=== PATIENT | male | born 1990 | race Two or more races ===

== ENCOUNTER 2024-04-12 06:10 | Day surgery (SDC) | payer OTHER ==
[2024-04-07 11:47] LABS: Urine Bacteria None Seen /hpf (None Seen)
[2024-04-07 12:00] LABS: Basophils # (auto) 0.1 10 ^3/uL (0-0.2); Basophils % (auto) 0.9 % (0.0-2.0); Eosinophils # (auto) 0.1 10 ^3/uL (0-0.8); Eosinophils % (auto) 1.8 % (0.0-7.0); Hematocrit 47.3 % (41.0-53.0); Hemoglobin 15.7 g/dL (13.5-17.5); Lymphocytes # (auto) 2.5 10 ^3/uL (0.4-5.4); Lymphocytes % (auto) 31.8 % (10.0-50.0); Mean Corpuscular Hemoglobin 30.7 pg (28.0-32.0); Mean Corpuscular Hgb Conc. 33.2 g/dL (32.0-36.0); Mean Corpuscular Volume 92.4 fL (80.0-100.0); Monocytes # (auto) 0.7 10 ^3/uL (0-1.3); Neutrophils # (auto) 4.4 10 ^3/uL (1.6-8.6); Neutrophils % (auto) 56.5 % (37.0-80.0); Nucleated Red Blood Cells % 0.1 %; Platelet Count (auto) 286 10^3/uL (140-450); Red Blood Cells 5.12 10^6/uL (4.5-5.90); Red Cell Distribution Width 13.4 % (11.8-14.3); White Blood Cell 7.7 10^3/uL (4.4-10.8)
[2024-04-07 12:17] LABS: Partial Thromboplastin Time 28.1 SEC (24.5-34.5); Prothrombin Time 10.6 sec (9.3-11.8)
[2024-04-07 12:18] LABS: Urine Blood Negative /uL (Negative); Urine Clarity Clear (Clear); Urine Color Yellow (Yellow); Urine Protein, UAD Negative (Negative); Urine Specific Gravity 1.028 (1.001-1.035); Urine Urobilinogen Normal (Negative); Urine WBC <1 /hpf (0 - 3)
[2024-04-07 12:36] LABS: Alanine Aminotransferase 43 U/L (7-40); Albumin 4.8 g/dL (3.2-4.8); Alkaline Phosphatase 72 U/L (46-116); Anion Gap 4 (5-15); Aspartate Aminotransferase 18 U/L (13-40); BUN/Creatinine Ratio 14.6 (10.0-20.0); Bilirubin, Total 0.5 mg/dL (0.2-1.0); Blood Urea Nitrogen 14 mg/dL (9-23); Calcium 10.2 mg/dL (8.7-10.4); Carbon Dioxide 30 mmol/L (20-31); Chloride 108 mmol/L (98-107); Glucose 119 mg/dL (74-106); Potassium 4.4 mmol/L (3.5-5.1); Sodium 142 mmol/L (136-145); Total Protein 7.5 g/dL (5.7-8.2)
[~2024-04-12] VITALS: Ht 165.1 cm; Wt 68.0 kg
[2024-04-12] MEDS ORDERED: ceFAZolin 2 GM/D5W100ml 100 ML IV ONE (06:33)
[2024-04-12] MEDS ORDERED: BUPIVACAINE HCL 50 ML ONE (07:26)
[2024-04-12] MEDS ORDERED: DexAMETHasone SOD PHOS 10MG/1ML VIAL INJ ONE (11:49)
[2024-04-12] MEDS ORDERED: KETAMINE 50mg/ML 1ml syringe ONE (11:49)
[2024-04-12] MEDS ORDERED: LIDOCAINE 2% (LOCAL ANESTH.) PF 5ml SDV ONE (11:49)
[2024-04-12] MEDS ORDERED: GLYCOPYRROLATE 0.2 MG/ML 1ML VIAL ONE (11:49)
[2024-04-12] MEDS ORDERED: KETOROLAC TROMETH 30 MG/ML 1ML VIAL ONE (11:49)
[2024-04-12] MEDS ORDERED: fentaNYL CITRATE 100 MCG/2 ML VL ONE (11:49)
[2024-04-12] MEDS ORDERED: PROPOFOL 10 MG/ML 20 ML IV ONE (11:49)
[2024-04-12] MEDS ORDERED: ONDANSETRON HCL 4 MG/2 ML VIAL ONE ×2 (11:49→14:09)
[2024-04-12] MEDS ORDERED: LIDOCAINE 1% INJ PF 5ML AMP ONE (11:53)
[2024-04-12] MEDS ORDERED: EPINEPHrine HCL 1 MG/1 ML AMP ONE (11:54)
[2024-04-12] MEDS ORDERED: DexAMETHasone SOD PHOS 4 MG/1ML SDV INJ ONE (12:15)
[2024-04-12] MEDS: GABAPENTIN 400 MG CAP PO ONE (12:24)
[2024-04-12] MEDS: CELECOXIB 100 MG CAP PO ONE (12:24)
[2024-04-12] MEDS: ACETAMINOPHEN IV 1000 MG/100ML (10MG/ML) IV ONE (12:24)
[2024-04-12 13:24] VITALS: RESP 17; TEMP 97.6; O2SAT 100
[2024-04-12] MEDS ORDERED: hydrALAZINE HCL 20 MG/ML VL IV PRN (13:30)
[2024-04-12] MEDS ORDERED: FLUMAZENIL 0.1 MG/ML INJ 10ML MDV IV PRN (13:30)
[2024-04-12] MEDS ORDERED: ePHEDrine SULFATE 50 MG/ML AMP IV PRN (13:30)
[2024-04-12] MEDS ORDERED: NALOXONE HCL 0.4 MG/ML VIAL IV PRN (13:30)
[2024-04-12] MEDS ORDERED: fentaNYL CITRATE 100 MCG/2 ML VL IV PRN (13:30)
[2024-04-12] MEDS ORDERED: HYDROmorphone HCL 2 MG/ML VL/or syr IV PRN (13:30)
--- NOTE | 2024-04-12 13:32 | DVHOP2 ---
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 These include but are not limited to complications of anesthesia, postoperative infection, incomplete relief of symptoms, recurrence of symptoms, damage to blood vessels, nerves and tendons, deep venous thrombosis, pulmonary embolism and possible need for repeat surgery in the future. Complications: None Estimated Blood Loss: Less than 5 mL Indications for Surgery: The patient is a 33-year-old male who presented to the clinic with a history of knee pain. Clinical and radiological evaluation demonstrated tenderness over the lateral facet of the patella. MRI appeared to be normal with no evidence of meniscus tear or ligament tear. Slight lateral patellar tilt was noted. Nonoperative treatment was recommended. However the patient was very frustrated with the years of observation and physical therapy and expressed interest in trying any other options including surgery. Lateral release was discussed as a controversial procedure that can sometimes help with anterior knee pain. Guarded prognosis was discussed with him. Benefits, risks and treatment alternatives were discussed . specific complications of the surgery such as neurovascular injury, infection, arthrofibrosis, loss of life were discussed and the patient decided to proceed with surgery Name of Procedure Performed Right knee arthroscopy with lateral release and patellar chondroplasty Procedure Details Procedure Details: The patient was identified in the preoperative holding area and the surgical site was marked. The consent was verified. The patient was brought into the operating room and placed supine on the operating table. General anesthesia was administered. A tourniquet was applied over the proximal thigh. All the bony prominences were appropriately padded. The knee was positioned appropriately. The extremity was now prepped and draped in the usual sterile manner. A timeout was called out to confirm the identity of the patient, the nature of surgery, the site of surgery, the availability of implants and x-rays and allergies to medications. A standard anterolateral portal was established. A 30 degree scope was inserted. A standard anteromedial portal was established, a probe was inserted and the findings are as follows 1. Mild chondromalacia patella, small focal chondral flap. 2. Intact ACL and PCL 3. Intact medial compartment cartilage 4. Intact lateral meniscus and lateral compartment cartilage 5. Lateral patellar tilt Based on these findings, clinical examination and discussion with the patient, decided to proceed with a lateral release. A hooked cautery was used. The scope was inserted in the medial portal. The hooked cautery was used to incise the lateral patellar retinaculum. Care was taken not to extend the release to proximal into the vastus lateralis. Chondroplasty was performed with the help of a shaver. There was a small area approximately 6 mm of chondral flap in the central portion of the patella. This was too small for us to do anything other than chondroplasty. Diagnostic arthroscopy was completed. Suprapatellar pouch did not show any loose bodies. Lateral and medial gutters did not show any loose bodies either. Irrigation was given and the skin incisions were closed with 3-0 Monocryl. Sterile dressing was applied. Condition Good Disposition Home MATTHEW HOLT MD Apr 12, 2024 13:32
[2024-04-12] MEDS: ONDANSETRON HCL 4 MG/2 ML VIAL IV PRN (14:04)
[2024-04-12] MEDS: oxyCODONE HCL 5MG TAB PO PRN (14:20)
[2024-04-12 14:35] VITALS: BP 135/91; PULSE 68; RESP 17; O2SAT 97
== END 2024-04-12 14:51 | disposition home or self-care (01) ==
LOC: SUR 06:10
PROVIDERS: ATTEND Orthopaedic Surgery Sports Medicine
DX: M22.41 Chondromalacia patellae, right knee (principal); F17.210 Nicotine dependence, cigarettes, uncomplicated
CPT/HCPCS: 29873; 36415; 80053; 81001; 85025; 85610; 85730; J0171; J1100; J1885; J2003; J2405; J2704; J3010; J3490; J0131

== ENCOUNTER → 2024-09-13 | Day surgery (SDC) | payer OTHER ==
[2024-09-12 14:57] LABS: Urine Bacteria None Seen /hpf (None Seen)
[2024-09-12 15:09] LABS: Basophils # (auto) 0.1 10 ^3/uL (0-0.2); Basophils % (auto) 0.7 % (0.0-2.0); Eosinophils # (auto) 0.1 10 ^3/uL (0-0.8); Hematocrit 46.6 % (41.0-53.0); Hemoglobin 15.6 g/dL (13.5-17.5); Lymphocytes % (auto) 27.4 % (10.0-50.0); Mean Corpuscular Hemoglobin 31.2 pg (28.0-32.0); Mean Corpuscular Hgb Conc. 33.5 g/dL (32.0-36.0); Monocytes # (auto) 0.6 10 ^3/uL (0-1.3); Monocytes % (auto) 8.3 % (0.0-12.0); Neutrophils # (auto) 4.6 10 ^3/uL (1.6-8.6); Neutrophils % (auto) 62.6 % (37.0-80.0); Nucleated Red Blood Cells % 0.1 %; Platelet Count (auto) 284 10^3/uL (140-450); Red Blood Cells 5.01 10^6/uL (4.5-5.90); Red Cell Distribution Width 13.3 % (11.8-14.3); White Blood Cell 7.4 10^3/uL (4.4-10.8)
[2024-09-12 15:22] LABS: Alkaline Phosphatase 86 U/L (46-116)
[2024-09-12 15:23] LABS: Alanine Aminotransferase 28 U/L (7-40); Albumin 4.7 g/dL (3.2-4.8); Anion Gap 5 (5-15); Aspartate Aminotransferase 13 U/L (13-40); BUN/Creatinine Ratio 10.1 (10.0-20.0); Bilirubin, Total 0.5 mg/dL (0.2-1.0); Blood Urea Nitrogen 11 mg/dL (9-23); Calcium 9.7 mg/dL (8.7-10.4); Carbon Dioxide 31 mmol/L (20-31); Chloride 104 mmol/L (98-107); Potassium 4.3 mmol/L (3.5-5.1); Sodium 140 mmol/L (136-145); Total Protein 7.1 g/dL (5.7-8.2)
[2024-09-12 15:25] LABS: Urine Blood Negative /uL (Negative); Urine Clarity Clear (Clear); Urine Color Light-Yellow (Yellow); Urine Protein, UAD Negative (Negative); Urine Specific Gravity 1.023 (1.001-1.035); Urine Squamous Epithelial Cell FEW /hpf (<5); Urine Urobilinogen Normal (Negative); Urine WBC 1 /HPF (0-3); Urine pH 6.5 (5.0-9.0)
[2024-09-12 15:27] LABS: INR 0.97 (0.9-1.15); Partial Thromboplastin Time 27.6 SEC (24.5-34.5); Prothrombin Time 10.3 sec (9.3-11.8)
[2024-09-12 15:29] LABS: Glucose 251 mg/dL (74-106)
[~2024-09-13] VITALS: Ht 165.1 cm; Wt 68.0 kg
[~2024-09-13] MED LIST: BUPIVACAINE HCL 50 ML ONE; DexAMETHasone SOD PHOS 10MG/1ML VIAL INJ ONE; HYDROmorphone HCL 2 MG/ML VL/or syr IV PRN; KETAMINE 50mg/ML 1ml syringe ONE; KETOROLAC TROMETH 30 MG/ML 1ML VIAL IV ONE; LIDOCAINE 1% INJ PF 5ML AMP ONE; LIDOCAINE HCL 2% TOP JELLY 5ML TOP ONE; MEPERIDINE HCL (50 MG/ML) 1 ML VIAL ONE; METOCLOPRAMIDE HCL 5MG/ml INJ 2ml VIAL IV ONE; MIDAZOLAM HCL 2MG/2ML 2ml VIAL (1mg/ml) ONE; MORPHINE SULFATE 4 MG/ML SYR/VIAL IV PRN; MORPHINE SULFATE INJ 2 MG/ml SYRG IV PRN; ONDANSETRON HCL 4 MG/2 ML VIAL ONE; ROCURONIUM 10MG/ML 10ML VIAL IV ONE; SODIUM CHLORIDE LOCK 50 ML ONE; SUCCINYLCHOLINE CHLORIDE 20 MG/ML 10ML VIAL IV ONE; ceFAZolin 2 GM/D5W100ml 100 ML IV ONE; fentaNYL CITRATE 100 MCG/2 ML VL ONE
[2024-09-13 08:04] VITALS: PULSE 78; RESP 9; TEMP 98.1; O2SAT 96
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
[2024-09-13] MEDS: HYDROmorphone HCL 2 MG/ML VL/or syr IV PRN (09:55)
[2024-09-13 10:15] VITALS: BP 120/75; PULSE 64; RESP 12; O2SAT 93
[2024-09-13] MEDS: oxyCODONE HCL 5MG TAB PO ONE (10:20)
== END | disposition home or self-care (01) ==
LOC: SUR 06:22
PROVIDERS: ATTEND Orthopaedic Surgery Sports Medicine
DX: M22.42 Chondromalacia patellae, left knee (principal); M89.8X6 Other specified disorders of bone, lower leg; E11.9 Type 2 diabetes mellitus without complications; G89.29 Other chronic pain; F17.210 Nicotine dependence, cigarettes, uncomplicated; Z79.891 Long term (current) use of opiate analgesic; Z79.899 Other long term (current) drug therapy; Z98.890 Other specified postprocedural states
CPT/HCPCS: 29873; 36415; 80053; 81001; 85025; 85610; 85730; 87086; J0330; J1100; J1171; J2175; J2250; J2405; J3010; J3490